=== PATIENT | female | born 1955 | race Caucasian/White ===

== ENCOUNTER 2024-11-04 07:46 | Day surgery (SDC) | payer MEDICARE ==
[2024-11-04] MEDS ORDERED: fentaNYL 100 MCG/2 ML SDV ONE (08:01)
[2024-11-04] MEDS ORDERED: Propofol 200 MG/20 ML SDV ONE (08:01)
[2024-11-04] MEDS ORDERED: Midazolam 1 MG/ML 2 ML SDV ONE (08:01)
[2024-11-04] MEDS: Lactated Ringers 1,000 ML IV SCH (08:05)
== END 2024-11-04 11:45 | disposition home or self-care (01) ==
LOC: JP.SDS 07:46
PROVIDERS: ATTEND Surgery
DX: Z12.11 Encounter for screening for malignant neoplasm of colon (principal); K57.30 Diverticulosis of large intestine without perforation or abscess without bleeding; Z80.0 Family history of malignant neoplasm of digestive organs; E78.5 Hyperlipidemia, unspecified; Z85.038 Personal history of other malignant neoplasm of large intestine; Z91.018 Allergy to other foods
CPT/HCPCS: G0105; J2250; J2704; J3010; J7120